=== PATIENT | female | born 1975 | race American Indian/Alaskan Native ===

== ENCOUNTER 2021-05-28 21:41 | Emergency (ER) | payer OTHER ==
[2021-05-29] MEDS ORDERED: predniSONE 20 MG TAB PO ONE (02:37)
[2021-05-29] MEDS ORDERED: ONDANSETRON 4 MG/2 ML INJ IV ONE (02:37)
[2021-05-29] MEDS ORDERED: MORPHINE 4 MG/1 ML INJ IV ONE (02:37)
[2021-05-29] MEDS ORDERED: IPRATROPIUM 0.02% NEBU 2.5 ML IH ONE (02:37)
[2021-05-29] MEDS ORDERED: ALBUTEROL 2.5 MG/3 ML NEBU IH ONE (02:37)
[2021-05-29] MEDS ORDERED: SODIUM CHLORIDE 0.9% 500 ML 500 ML IV ONE (02:37)
[2021-05-29] MEDS ORDERED: PANTOPRAZOLE 40 MG INJ IV ONE (02:38)
--- NOTE | 2021-05-29 02:39 | Emergency Department Report ---
ED General Adult HPI - General Chief complaint: Abdominal Pain Stated complaint: BLOOD IN URINE,SEVERE PAIN IN LEGS Time Seen by Provider: 05/29/21 02:31 Source: patient, RN notes reviewed Mode of arrival: Ambulatory Limitations: No Limitations - History of Present Illness Initial comments: This patient is a morbidly obese female with a past medical history of asthma, reactive airways disease, arthritis, body mass index of 54.9, status post tubal ligation, who states that she is not , presenting to the ER today with left upper quadrant right upper quadrant abdominal pain, abdominal fullness and cramping, bloody urination, and bilateral lower extremity cramping. She also thinks that she is wheezing. The patient denies headache, neck pain, chest pain. The patient indicates her pain is sharp and throbbing, increases with palpation and range of motion. It decreases with rest. She also develops a lower extremity cramps when the weath er changes. -: Gradual Location: abdomen, left, right, lower extremity Radiation: non-radiation Severity scale (0 -10): 9 Quality: aching, other Consistency: intermittent Improves with: rest Worsens with: movement - Related Data Previous Rx's Medication Instructions Recorded Last Taken Type Acetaminophen [Non-Aspirin Extra 500 mg PO Q6HR PRN #30 tablet 05/29/21 Unknown Rx Strength] Albuterol Sulfate [Proair 90 mcg IH Q4HR PRN #2 aer.pow.ba 05/29/21 Unknown Rx Respiclick] Megan Root [Megan] 250 mg PO QID PRN #30 capsule 05/29/21 Unknown Rx Pantoprazole [Protonix] 40 mg PO QDAY #30 tablet 05/29/21 Unknown Rx predniSONE [Deltasone] 40 mg PO QDAY #8 tab 05/29/21 Unknown Rx Allergies Allergy/AdvReac Type Severity Reaction Status Date / Time Penicillins Allergy Rash Verified 05/28/21 22:04 ED Review of Systems ROS: Stated complaint: BLOOD IN URINE,SEVERE PAIN IN LEGS Other details as noted in HPI Constitutional: denies: fever Eyes: denies: eye discharge Respiratory: wheezing. denies: cough Cardiovascular: denies: chest pain Gastrointestinal: abdominal pain Genitourinary: hematuria Musculoskeletal: arthralgia, myalgia Neurological: weakness Hematological/Lymphatic: denies: easy bleeding ED Past Medical Hx - Past Medical History Hx Asthma: Yes - Surgical History Additional Surgical History: tubes tied, wrist - Medications Home Medications: Home Medications Medication Instructions Recorded Confirmed Last Taken Type Acetaminophen [Non-Aspirin Extra 500 mg PO Q6HR PRN #30 tablet 05/29/21 Unknown Rx Strength] Albuterol Sulfate [Proair 90 mcg IH Q4HR PRN #2 aer.pow.ba 05/29/21 Unknown Rx Respiclick] Megan Root [Megan] 250 mg PO QID PRN #30 capsule 05/29/21 Unknown Rx Pantoprazole [Protonix] 40 mg PO QDAY #30 tablet 05/29/21 Unknown Rx predniSONE [Deltasone] 40 mg PO QDAY #8 tab 05/29/21 Unknown Rx ED Physical Exam - General Limitations: No Limitations General appearance: alert, obese - Head Head exam: Present: atraumatic, normocephalic - Eye Eye exam: Present: normal appearance, EOMI. Absent: nystagmus - ENT ENT exam: Present: normal exam, normal orophraynx, mucous membranes moist, normal external ear exam - Neck Neck exam: Present: normal inspection, full ROM. Absent: tenderness, meningismus - Respiratory Respiratory exam: Present: wheezes. Absent: rales, rhonchi, stridor, decreased breath sounds - Cardiovascular Cardiovascular Exam: Present: regular rate, normal rhythm, normal heart sounds. Absent: bradycardia, tachycardia, irregular rhythm, systolic murmur, diastolic murmur, rubs, gallop - GI/Abdominal GI/Abdominal exam: Present: soft, tenderness, other (There is right upper quadrant tenderness. There is left upper quadrant tenderness). Absent: distended, guarding, rebound, rigid, pulsatile mass - Extremities Exam Extremities exam: Present: normal inspection, full ROM, other (2+ pulses noted in the bilateral upper and lower extremities. Bones are nontender. The pelvis is stable. The muscular compartments are soft. Range of motion intact in the bilateral knees. The knees demonstrate no redness, pus or streaking.). Absent: pedal edema, calf tenderness - Back Exam Back exam: Present: normal inspection. Absent: tenderness, CVA tenderness (R), CVA tenderness (L), paraspinal tenderness - Neurological Exam Neurological exam: Present: alert, oriented X3, other (No facial droop. Tongue midline. Extraocular movements intact bilaterally. Facial sensation intact to light touch in V1, V2, V3 distribution bilaterally. 5 and a 5 strength in 4 extremities. Sensation intact to light touch in 4 extremities.). Absent: motor sensory deficit - Psychiatric Psychiatric exam: Present: normal affect, normal mood - Skin Skin exam: Present: warm, dry, intact, normal color. Absent: rash ED Course Vital Signs 05/28/21 05/29/21 05/29/21 22:02 02:55 03:04 Temperature 98.3 F Pulse Rate 101 H 78 Pulse Rate [ 72 Bilateral] Respiratory 16 14 Rate Respiratory 18 Rate [Bilateral ] Blood Pressure 111/80 127/68 [Right] O2 Sat by Pulse 98 98 Oximetry O2 Sat by Pulse Oximetry [ Digit-Finger] 05/29/21 05/29/21 03:17 04:48 Temperature Pulse Rate Pulse Rate [ Bilateral] Respiratory 18 Rate Respiratory Rate [Bilateral ] Blood Pressure [Right] O2 Sat by Pulse Oximetry O2 Sat by Pulse 99 Oximetry [ Digit-Finger] - Reevaluation(s) Reevaluation #1: 05/29/21 02:54 Differential diagnosis, including but not limited to: Pancreatitis GERD, gastritis, hiatal hernia, pneumonia, biliary colic, cholecystitis, renal colic, urinary tract infection, obstruction, colitis, diverticulitis, arthritis, elevated CK, myalgias Incidental reactive airways disease Assessment and plan: 45-year-old female with multiple complaints. In terms of abdominal pain, the patient is morbidly obese. Obtain appropriate laboratory studies, EKG, treat her symptoms, obtain CT scan of the abdomen pelvis with IV contrast. Reassess. In terms of her lower extremity pain, administer pain medication, obtain CK, external examination of lower extremities is unremarkable. Supportive care, weightbearing as tolerated, IV fluids. Found to be wheezing incidentally. Albuterol, Atrovent, steroids. Reassess. Discussed with patient. She is agreeable to the plan of care. 05/29/21 05:05 Chest x-ray negative. Abdomen CT negative. Laboratory studies nonactionable. Patient feels improved. Saturating at 96% on room air. Discussed findings with patient. She articulates understanding. Return precautions reviewed. All questions answered - Pulse Oximetry Interpretation Digit-Finger Initial Pulse Oximetry Readin O2 Sat by Pulse Oximetry: 99 Actions Taken: none ED Medical Decision Making - Lab Data Result diagrams: 05/29/21 02:44 05/29/21 02:44 Vital Signs 05/28/21 22:02 Temperature 98.3 F Pulse Rate 101 H Respiratory 16 Rate Blood Pressure 111/80 [Right] O2 Sat by Pulse 98 Oximetry Lab Results 05/29/21 05/29/21 05/29/21 Range/Units 02:44 02:44 02:44 WBC 6.3 (4.5-11.0) K/mm3 RBC 4.41 (3.65-5.03) M/mm3 Hgb 12.7 (10.1-14.3) gm/dl Hct 38.6 (30.3-42.9) % MCV 88 (79-97) fl MCH 29 (28-32) pg MCHC 33 (30-34) % RDW 14.7 (13.2-15.2) % Plt Count 273 (140-440) K/mm3 Lymph % (Auto) 37.0 H (13.4-35.0) % [place] % (Auto) 8.7 H (0.0-7.3) % Eos % (Auto) 4.0 (0.0-4.3) % Baso % (Auto) 1.2 (0.0-1.8) % Lymph # (Auto) 2.3 (1.2-5.4) K/mm3 [place] # (Auto) 0.5 (0.0-0.8) K/mm3 Eos # (Auto) 0.3 (0.0-0.4) K/mm3 Baso # (Auto) 0.1 (0.0-0.1) K/mm3 Seg Neutrophils % 49.1 (40.0-70.0) % Seg Neutrophils # 3.1 (1.8-7.7) K/mm3 Sodium 141 (137-145) mmol/L Potassium 3.9 (3.6-5.0) mmol/L Chloride 102.9 (98-107) mmol/L Carbon Dioxide 28 (22-30) mmol/L Anion Gap 14 mmol/L BUN 8 (7-17) mg/dL Creatinine 0.8 (0.6-1.2) mg/dL Estimated GFR > 60 ml/min BUN/Creatinine Ratio 10 % Glucose 101 H (65-100) mg/dL Calcium 9.2 (8.4-10.2) mg/dL Magnesium 1.90 (1.7-2.3) mg/dL Total Bilirubin 0.20 (0.1-1.2) mg/dL AST 11 (5-40) units/L ALT 9 (7-56) units/L Alkaline Phosphatase 67 (35-129) units/L Total Creatine Kinase 115 (30-135) units/L Troponin T < 0.010 (0.00-0.029) ng/mL Total Protein 7.4 (6.3-8.2) g/dL Albumin 4.1 (3.9-5) g/dL Albumin/Globulin Ratio 1.2 % Lipase 29 (13-60) units/L HCG, Quant < 2 (0-4) mIU/mL Urine Color (Yellow) Urine Turbidity (Clear) Urine pH (5.0-7.0) Ur Specific [place] (1.003-1.030) Urine Protein (Negative) mg/dL Urine Glucose (UA) (Negative) mg/dL Urine Ketones (Negative) mg/dL Urine Blood (Negative) Urine Nitrite (Negative) Urine Bilirubin (Negative) Urine Urobilinogen (<2.0) mg/dL Ur Leukocyte Esterase (Negative) Urine WBC (Auto) (0.0-6.0) /HPF Urine RBC (Auto) (0.0-6.0) /HPF U Epithel Cells (Auto) (0-13.0) /HPF Urine Mucus /HPF 04/20/22 Range/Units 03:27 WBC (4.5-11.0) K/mm3 RBC (3.65-5.03) M/mm3 Hgb (10.1-14.3) gm/dl Hct (30.3-42.9) % MCV (79-97) fl MCH (28-32) pg MCHC (30-34) % RDW (13.2-15.2) % Plt Count (140-440) K/mm3 Lymph % (Auto) (13.4-35.0) % Nicol[place] % (Auto) (0.0-7.3) % Eos % (Auto) (0.0-4.3) % Baso % (Auto) (0.0-1.8) % Lymph # (Auto) (1.2-5.4) K/mm3 [place] # (Auto) (0.0-0.8) K/mm3 Eos # (Auto) (0.0-0.4) K/mm3 Baso # (Auto) (0.0-0.1) K/mm3 Seg Neutrophils % (40.0-70.0) % Seg Neutrophils # (1.8-7.7) K/mm3 Sodium (137-145) mmol/L Potassium (3.6-5.0) mmol/L Chloride (98-107) mmol/L Carbon Dioxide (22-30) mmol/L Anion Gap mmol/L BUN (7-17) mg/dL Creatinine (0.6-1.2) mg/dL Estimated GFR ml/min BUN/Creatinine Ratio % Glucose (65-100) mg/dL Calcium (8.4-10.2) mg/dL Magnesium (1.7-2.3) mg/dL Total Bilirubin (0.1-1.2) mg/dL AST (5-40) units/L ALT (7-56) units/L Alkaline Phosphatase (35-129) units/L Total Creatine Kinase (30-135) units/L Troponin T (0.00-0.029) ng/mL Total Protein (6.3-8.2) g/dL Albumin (3.9-5) g/dL Albumin/Globulin Ratio % Lipase (13-60) units/L HCG, Quant (0-4) mIU/mL Urine Color Yellow (Yellow) Urine Turbidity Slightly-cloudy (Clear) Urine pH 5.0 (5.0-7.0) Ur Specific [place] 1.025 (1.003-1.030) Urine Protein <15 mg/dl (Negative) mg/dL Urine Glucose (UA) Neg (Negative) mg/dL Urine Ketones Tr (Negative) mg/dL Urine Blood Neg (Negative) Urine Nitrite Neg (Negative) Urine Bilirubin Neg (Negative) Urine Urobilinogen 2.0 (<2.0) mg/dL Ur Leukocyte Esterase Neg (Negative) Urine WBC (Auto) < 1.0 (0.0-6.0) /HPF Urine RBC (Auto) 1.0 (0.0-6.0) /HPF U Epithel Cells (Auto) 2.0 (0-13.0) /HPF Urine Mucus Few /HPF - EKG Data -: EKG Interpreted by Md EKG shows normal: sinus rhythm Rate: normal - EKG Data 05/29/21 02:56 The EKG is interpreted at 02: 5 6 Sinus rhythm, 74 bpm. Normal axis, normal P wave axis, high left ventricular voltage, minimal motion artifact, QTC 4 7 1 ms. Abnormal EKG. Not a STEMI. - Radiology Data Radiology results: report reviewed, image reviewed CT ABDOMEN AND PELVIS WITH CONTRAST INDICATION / CLINICAL INFORMATION: Diffuse abdominal pain, Hematuria. TECHNIQUE: Axial CT images were obtained through the abdomen and pelvis after 100 cc Omnipaque [address] scans at this location are performed using CT dose reduction for ALARA by means of automated exposure control. COMPARISON: None available. FINDINGS: LOWER CHEST: No significant abnormality of the imaged chest. LIVER: No significant abnormality. GALLBLADDER: No significant abnormality. BILE DUCTS: No significant abnormality. SPLEEN: No significant abnormality. PANCREAS: No significant abnormality. ADRENALS: No significant abnormality. RIGHT KIDNEY / URETER: No significant abnormality. LEFT KIDNEY / URETER: No significant abnormality. STOMACH / DUODE NUM / SMALL BOWEL: No significant abnormality. COLON: No significant abnormality. APPENDIX: No significant abnormality. PERITONEUM: No free air or free fluid are present within the abdomen or pelvis. LYMPH NODES: No significant adenopathy. AORTA / ARTERIES: No significant abnormality. IVC / VEINS: No significant abnormality. URINARY BLADDER: No significant abnormality. REPRODUCTIVE ORGANS: No significant abnormality. ADDITIONAL ABDOMINAL/PELVIC FINDINGS: None. SKELETAL SYSTEM: No significant abnormality. IMPRESSION: 1. No imaging findings to suggest etiology of the provided symptoms. Signer Name: Daryn Sinclair II, MD Signed: 05/29/2021 3:27 AM Workstation Name: [email or web address] X-ray the chest is negative for acute findings CHEST 1 VIEW INDICATION / CLINICAL INFORMATION: upper abd pain wheezing. COMPARISON: None available. FINDINGS: Heart size appears within normal limits. Mediastinal contour demonstrates no significant abnormality. Pulmonary vasculature appears within normal limits. Lungs are clear. Bones and soft tissues demonstrate no significant abnormalities. IMPRESSION: 1. No active cardiopulmonary disease. Signer Name: Daryn Sinclair II, MD Signed: 05/11 3:53 AM Workstation Name: [email or web address] Critical care attestation.: If time is entered above; I have spent that time in minutes in the direct care of this critically ill patient, excluding procedure time. ED Disposition Clinical Impression: Body mass index (BMI) of 50-59.9 in adult, Acute abdominal pain, Reactive airway disease, Cramp in lower leg Disposition: 01 HOME / SELF CARE / HOMELESS Is pt being admited?: No Does the pt Need Aspirin: No Condition: Good Instructions: Abdominal Pain (ED), Asthma, Adult, Muscle Cramps and Spasms, [id number], Abdominal Pain, Adult, [id number], BMI for Adults Additional Instructions: Avoid consumption of Motrin, ibuprofen, Naprosyn, Aleve. Avoid consumption of tobacco, alcohol, smoke products, heavy and spicy foods. Recommend that patient exercise as tolerated, and aggressively lose weight for body mass index of 54.9. Take the breathing medication and steroids as directed. Take the prescribed nausea medication and pain medication as needed and directed. Recommend that patient follow-up with a primary care doctor within the next 7 to 10 days. Do not take metformin medication for the next 2 days, if patient irma es this medication. Please return to the emergency room right away with new pain, worsened pain, mi gration of pain, projectile vomiting, change in mental status, confusion, inability tolerate liquid feeds, new, worsened or different symptoms not present on the initial emergency room evaluation Referrals: [facility] [Provider Group] - 7-10 days Forms: Work/School Release Form(ED)
[2021-05-29 03:01] LABS: Basophils # (Auto) 0.1 K/mm3 (0.0-0.1); Basophils % (Auto) 1.2 % (0.0-1.8); Eosinophils # (Auto) 0.3 K/mm3 (0.0-0.4); Hematocrit 38.6 % (30.3-42.9); Hemoglobin 12.7 gm/dl (10.1-14.3); Lymphocytes # (Auto) 2.3 K/mm3 (1.2-5.4); Mean Corpuscular HGB Conc 33 % (30-34); Mean Corpuscular Volume 88 fl (79-97); Monocytes # (Auto) 0.5 K/mm3 (0.0-0.8); Monocytes % (Auto) 8.7 % (0.0-7.3); Platelet Count 273 K/mm3 (140-440); Red Blood Count 4.41 M/mm3 (3.65-5.03); Red Cell Distribution Width 14.7 % (13.2-15.2)
[2021-05-29 03:22] LABS: Alanine Aminotransferase 9 units/L (7-56); Albumin 4.1 g/dL (3.9-5); BUN/Creatinine Ratio 10; Blood Urea Nitrogen 8 mg/dL (7-17); Calcium 9.2 mg/dL (8.4-10.2); Hemolysis Index 4
[2021-05-29 03:40] LABS: Bilirubin,Urine NEG (Negative); Blood,Urine NEG (Negative); Color,Urine Yellow (Yellow); Mucus,Urine FEW /HPF; Protein,Urine <15 mg/dL mg/dL (Negative); WBC,Urine < 1.0 /HPF (0.0-6.0)
--- NOTE | 2021-05-29 04:31 | Cat Scan Report ---
CT ABDOMEN AND PELVIS WITH CONTRAST INDICATION / CLINICAL INFORMATION: Diffuse abdominal pain, Hematuria. TECHNIQUE: Axial CT images were obtained through the abdomen and pelvis after 100 cc Omnipaque [address] scans at this location are performed using CT dose reduction for ALARA by means of automated exposure control. COMPARISON: None available. FINDINGS: LOWER CHEST: No significant abnormality of the imaged chest. LIVER: No significant abnormality. GALLBLADDER: No significant abnormality. BILE DUCTS: No significant abnormality. SPLEEN: No significant abnormality. PANCREAS: No significant abnormality. ADRENALS: No significant abnormality. RIGHT KIDNEY / URETER: No significant abnormality. LEFT KIDNEY / URETER: No significant abnormality. STOMACH / DUODENUM / SMALL BOWEL: No significant abnormality. COLON: No significant abnormality. APPENDIX: No significant abnormality. PERITONEUM: No free air or free fluid are present within the abdomen or pelvis. LYMPH NODES: No significant adenopathy. AORTA / ARTERIES: No significant abnormality. IVC / VEINS: No significant abnormality. URINARY BLADDER: No significant abnormality. REPRODUCTIVE ORGANS: No significant abnormality. ADDITIONAL ABDOMINAL/PELVIC FINDINGS: None. SKELETAL SYSTEM: No significant abnormality. IMPRESSION: 1. No imaging findings to suggest etiology of the provided symptoms. Signer Name: Daryn Sinclair II, MD Signed: 05/29/2021 4:27 AM Workstation Name: [email or web address] [id number]
--- NOTE | 2021-05-29 04:58 | XRay Report ---
CHEST 1 VIEW INDICATION / CLINICAL INFORMATION: upper abd pain wheezing. COMPARISON: None available. FINDINGS: Heart size appears within normal limits. Mediastinal contour demonstrates no significant abnormality. Pulmonary vasculature appears within normal limits. Lungs are clear. Bones and soft tissues demonstr ate no significant abnormalities. IMPRESSION: 1. No active cardiopulmonary disease. Signer Name: Daryn Sinclair II, MD Signed: 05/29/2021 4:53 AM Workstation Name: [id number]
[2021-05-29 05:20] VITALS: BP 126/75
--- NOTE | 2021-05-29 11:02 | Electrocardiograph Report ---
[facility] Test Date: 2021-05-29 Test Time: 02:54:41 Pat Name: JAMILAH BRENNAN Department: Room: Gender: F Contact Center Engineer: BAKARI : [id number] Requested By: CAROLINE HARRIS Order Number: [id number] Reading MD: Kraig Morales Measurements Intervals [place] Rate: 74 P: 59 MT: 135 QRS: 24 QRSD: 96 T: 59 QT: 423 QTc: 471 Interpretive Statements Sinus rhythm No previous ECG available for comparison Electronically Signed On 05-29-2021 11:02:08 EDT by Kraig Morales
== END 2021-05-29 05:20 | disposition home or self-care (01) ==
LOC: ED 21:41
DX: J45.909 Unspecified asthma, uncomplicated (principal); Z68.43 Body mass index [BMI] 50.0-59.9, adult; R10.0 Acute abdomen; R25.2 Cramp and spasm; Z88.0 Allergy status to penicillin
CPT/HCPCS: 36415; 71045; 74177; 80053; 81001; 82550; 83690; 83735; 84484; 84702; 85025; 93005; 94640; 96361; 96374; 96375; 99285; C9113; J2270; J2405; J7040; Q9967; 94644